=== PATIENT | female | born 1960 | race African-American/Black ===

== ENCOUNTER 2017-12-11 11:55 | Day surgery (SDC) | payer MEDICARE ==
[2017-12-09 10:04] VITALS: BMI 28.1
[2017-12-11] MEDS ORDERED: Lidocaine 1% PF 5 ML VIAL ONE (12:33)
[2017-12-11] MEDS ORDERED: ePHEDrine/0.9% NaCl/PF SYRINGE 50 mg/10 ml ONE (12:33)
[2017-12-11] MEDS ORDERED: Dexamethasone 20 MG/5 ML VIAL ONE (12:33)
[2017-12-11] MEDS ORDERED: PROPOFOL 200 MG/20 ML VIAL ONE (12:33)
[2017-12-11] MEDS ORDERED: Midazolam HCl 2 mg/2 ml Vial ONE ×2 (13:15→13:36)
[2017-12-11] MEDS ORDERED: EPINEPHrine 1 MG/ML AMP ONE ×2 (13:26)
[2017-12-11] MEDS ORDERED: Fentanyl 100 MCG/2 ML VIAL ONE (13:37)
[2017-12-11] MEDS ORDERED: Propofol 500 MG/50 ML VIAL ONE (13:40)
[2017-12-11] MEDS ORDERED: SUGAMMADEX SODIUM 200 MG/2 ML VIAL ONE (14:12)
--- NOTE | 2017-12-11 20:57 | OP ---
PREOPERATIVE DIAGNOSIS: Vocal cord lesion. POSTOPERATIVE DIAGNOSES: Right vocal cord lesion, right anterior commissure lesion. PROCEDURES PERFORMED: Microsuspension laryngoscopy with right vocal cord lesion and microsuspension laryngoscopy with anterior commissure vocal cord lesion. PROCEDURE IN DETAIL: After consent was obtained, the patient was identified, brought to the operatin g room, and placed on the operating table in supine position. General endotracheal anesthesia was ob tained with the Alok jet ventilating tube and the patient was positioned for surgery. Larynx was visualized under microscopic visualization and both the anterior commissure lesion and the right oren e vocal cord biopsy was obtained with micro cups and sent for histologic evaluation. The remainder o f the systematic evaluation of oral cavity, oropharynx, hypopharynx, and larynx was essentially withi n normal limits except for the larynx, which revealed the two lesions, which were biopsied and had ju st a diffuse irritated quality to the mucosa, edematous quality to the mucosa. The patient was then awakened, extubated, and taken to recovery room, where she remained in stable condition prior to disc harge home.
== END 2017-12-11 15:50 | disposition home or self-care (01) ==
LOC: SDC 11:55
PROVIDERS: ATTEND Specialist
PROC: 0CBT8ZX Excision of Right Vocal Cord, Via Natural or Artificial Opening Endoscopic, Diagnostic (ICD-10-PCS; principal; 2017-12-11)
DX: J38.3 Other diseases of vocal cords (principal); J45.909 Unspecified asthma, uncomplicated; D64.9 Anemia, unspecified; E11.9 Type 2 diabetes mellitus without complications; I10 Essential (primary) hypertension; M19.90 Unspecified osteoarthritis, unspecified site; F17.200 Nicotine dependence, unspecified, uncomplicated; Z79.899 Other long term (current) drug therapy
CPT/HCPCS: 36415; 85014; 88305; 93005; 93010; J0171; J1100; J2001; J2250; J2704; J2920; J3010